=== PATIENT | female | born 1970 | race Caucasian/White ===

== ENCOUNTER 2016-10-25 19:24 | Emergency (ER) | payer MEDICARE | END 2016-10-25 22:40 | disposition home or self-care (01) | LOC: ER1 19:24 | DX: N30.00 Acute cystitis without hematuria (principal); F17.210 Nicotine dependence, cigarettes, uncomplicated; Z90.710 Acquired absence of both cervix and uterus | CPT/HCPCS: 81001; 99283 ==

== ENCOUNTER → 2021-08-29 | Outpatient (CLI) | payer MEDICARE | LOC: KOH-I 09:56 | DX: M79.641 Pain in right hand (principal) | CPT/HCPCS: 73130 ==

== ENCOUNTER → 2021-11-16 | Outpatient (CLI) | payer MEDICARE | LOC: RAD 10:27 | DX: S53.31XD Traumatic rupture of right ulnar collateral ligament, subsequent encounter (principal) | CPT/HCPCS: 73130 ==